=== PATIENT | male | born 2000 | race Caucasian/White ===

== ENCOUNTER 2024-02-06 00:07 | Emergency (ER) | payer OTHER ==
[~2024-02-06] VITALS: Ht 188 cm; Wt 63.5 kg
[2024-02-06] MEDS ORDERED: Ibuprofen 600 MG Tab PO ONE (01:50)
[2024-02-06] MEDS ORDERED: Cyclobenzaprine HCl 10 MG Tab PO ONE (01:50)
[2024-02-06] MEDS ORDERED: IBU600 MG PO (01:52)
[2024-02-06] MEDS ORDERED: CYCL10 PO (01:52)
== END 2024-02-06 01:56 | disposition home or self-care (01) ==
LOC: ER 00:07
DX: S16.1XXA Strain of muscle, fascia and tendon at neck level, initial encounter (principal); V89.2XXA Person injured in unspecified motor-vehicle accident, traffic, initial encounter
CPT/HCPCS: 99283; A9270